=== PATIENT | male | born 1980 | race Native Hawaiian/Other Pacific Islander ===

== ENCOUNTER → 2017-01-10 | Outpatient (CLI) | payer OTHER | END | disposition home or self-care (01) | LOC: LABWHC1 09:28 | PROVIDERS: ATTEND Psychiatry & Neurology Neurology | DX: G40.209 Localization-related (focal) (partial) symptomatic epilepsy and epileptic syndromes with complex partial seizures, not intractable, without status epilepticus (principal) | CPT/HCPCS: 36415; 80177 ==

== ENCOUNTER → 2018-08-24 | Outpatient (CLI) | payer OTHER ==
--- NOTE | 2018-08-25 01:01 | MR ---
EXAMINATION TYPE: MR brain wo/w con DATE OF EXAM: 08/24/2018 COMPARISON: 04/15/2013 HISTORY: epilepsy,Neurocysticercosis TECHNIQUE: Multiplanar, multisequence images of the brain and brainstem is performed without and with IV contras t, utilizing 10 mL intravenous Gadavist . FINDINGS: Ventricles and sulci appear normal. There is no mass effect nor midline shift. There is no sign of intracranial hemorrhage. Brainstem appears normal. Sella turcica is normal. Corpus callosum i s normal. There is normal flow-void in the anterior middle and posterior cerebral arteries. There is normal contrast enhancement of the venous sinuses. I see no pathologic enhancement. There is a 7 mm i rregular filling defect in the right side transverse sinus. This is also present on previous MRI scan and is of doubtful significance. There is 6 mm rounded discrete focus of increased signal on the FLA IR images left posterior temporal lobe white matter. There are multiple scattered white matter high s ignal foci at the berrios-white matter junction of both cerebral hemispheres that measure up to 5 mm. To hemant number is approximately 10. Contrast images show no pathologic enhancement. There is 5 mm focus at berrios-white matter junction left posterior temporal lobe on the FLAIR images. IMPRESSION: Multiple white matter high signal lesions are nonspecific and could relate to neurocystic ercosis as well as demyelinating disease or microvascular ischemia.. Overall appearance of the brain is not significantly different than old exam. I do not see evidence of recurrent disease.
== END | disposition home or self-care (01) ==
LOC: RADMRIMAIN 19:12
PROVIDERS: ATTEND Psychiatry & Neurology Neurology
DX: R90.82 White matter disease, unspecified (principal)
CPT/HCPCS: 70553; A9581

== ENCOUNTER → 2018-12-13 | Outpatient (CLI) | payer OTHER | END | disposition home or self-care (01) | LOC: LABWHC1 10:46 | PROVIDERS: ATTEND Psychiatry & Neurology Neurology | DX: G40.209 Localization-related (focal) (partial) symptomatic epilepsy and epileptic syndromes with complex partial seizures, not intractable, without status epilepticus (principal) | CPT/HCPCS: 36415; 80177 ==

== ENCOUNTER → 2019-12-17 | Outpatient (CLI) | payer OTHER | END | disposition home or self-care (01) | LOC: LABWHC1 09:17 | PROVIDERS: ATTEND Psychiatry & Neurology Neurology | DX: G40.209 Localization-related (focal) (partial) symptomatic epilepsy and epileptic syndromes with complex partial seizures, not intractable, without status epilepticus (principal) | CPT/HCPCS: 36415; 80177 ==

== ENCOUNTER → 2020-06-25 | Outpatient (CLI) | payer OTHER ==
--- NOTE | 2020-06-26 06:35 | CT ---
EXAMINATION TYPE: CT brain wo/w con DATE OF EXAM: 06/25/2020 COMPARISON: CT brain June 30, 2014. MRI brain April 15, 2013. HISTORY: Epilepsy. Follow up scan. CT DLP: 2360 mGycm. Automated Exposure Control for Dose Reduction was Utilized. TECHNIQUE: CT scan of the head is performed without and with IV Contrast, patient injected with 100 mL of Isovue M300. FINDINGS: Noncontrast images show no acute intracranial hemorrhage or midline shift. Chavis-white mat ter differentiation fairly well maintained. The ventricles and sulci are within normal limits in size . Postcontrast images show no suspicious enhancing intraparenchymal mass. The globes are intact and t he visualized sinuses are clear on current study. IMPRESSION: Fairly unremarkable study. No significant change from prior studies.
== END | disposition home or self-care (01) ==
LOC: RADCTMAIN 18:45
PROVIDERS: ATTEND Psychiatry & Neurology Neurology
DX: G40.209 Localization-related (focal) (partial) symptomatic epilepsy and epileptic syndromes with complex partial seizures, not intractable, without status epilepticus (principal); B69.0 Cysticercosis of central nervous system
CPT/HCPCS: 70470; Q9967

== ENCOUNTER → 2021-05-24 | Outpatient (CLI) | payer OTHER | END | disposition home or self-care (01) | LOC: LABWHC1 09:14 | PROVIDERS: ATTEND Psychiatry & Neurology Neurology | DX: G40.209 Localization-related (focal) (partial) symptomatic epilepsy and epileptic syndromes with complex partial seizures, not intractable, without status epilepticus (principal) | CPT/HCPCS: 36415; 80177 ==

== ENCOUNTER → 2022-06-21 | Outpatient (CLI) | payer OTHER | END | disposition home or self-care (01) | LOC: LABWHC1 08:00 | PROVIDERS: ATTEND Psychiatry & Neurology Neurology | DX: G40.209 Localization-related (focal) (partial) symptomatic epilepsy and epileptic syndromes with complex partial seizures, not intractable, without status epilepticus (principal) | CPT/HCPCS: 36415; 80177 ==

== ENCOUNTER → 2022-11-29 | Outpatient (CLI) | payer OTHER ==
[2022-11-29 11:31] LABS: Basophils # (A) 0.03 X 10*3/uL (0.00-0.10); Basophils % (A) 0.3 %; Eosinophils # (A) 0.01 X 10*3/uL (0.04-0.35); Eosinophils % (A) 0.1 %; HCT 48.1 % (39.6-50.0); HGB 15.7 g/dL (13.0-17.0); Immature Grans, Automated 1.1 %; Lymphocytes # (A) 1.96 X 10*3/uL (0.90-5.00); Lymphocytes % (A) 17.5 %; MCH 28.5 pg (27.0-32.0); MCHC 32.6 g/dL (32.0-37.0); MCV 87.5 fL (80.0-97.0); Monocytes # (A) 0.81 X 10*3/uL (0.20-1.00); Monocytes % (A) 7.2 %; NRBC Per 100 WBC 0 /100 WBCS (0.0-0.0); Neutrophils # (A) 8.29 X 10*3/uL (1.80-7.70); Neutrophils % (A) 73.8 %; Platelet Count 244 X 10*3/uL (140-440); RDW 12.8 % (11.5-14.5); WBC 11.22 X 10*3/uL (4.50-10.00)
[2022-11-29 11:39] LABS: ALT 49 U/L (10-49); AST 18 U/L (14-35); Albumin 4.4 g/dL (3.8-4.9); Albumin/Globulin Ratio 1.83 (1.60-3.17); Alkaline Phosphatase 65 U/L (41-126); BUN/Creat Ratio 25.11 Ratio (12.00-20.00); Blood Urea Nitrogen 22.6 mg/dL (9.0-27.0); Calcium 9.9 mg/dL (8.7-10.3); Carbon Dioxide 30.3 mmol/L (20.0-27.5); Chloride 96 mmol/L (96-109); Chol/HDL Ratio 3.92 Ratio; Globulin 2.4 g/dL (1.6-3.3); Glucose 130 mg/dL (70-110); LDL Cholesterol,Calculated 154.5 mg/dL (0.0-131.0); Non-African American GFR(CKD) 103.5 (60.0-200.0); Potassium 4.5 mmol/L (3.5-5.5); Sodium 134 mmol/L (135-145); Total Protein 6.8 g/dL (6.2-8.2)
== END | disposition home or self-care (01) ==
LOC: LABWHC1 08:46
PROVIDERS: ATTEND Family Medicine
DX: I10 Essential (primary) hypertension (principal); E78.2 Mixed hyperlipidemia
CPT/HCPCS: 36415; 80053; 80061; 85025

== ENCOUNTER → 2022-12-23 | Outpatient (CLI) | payer OTHER ==
--- NOTE | 2022-12-24 11:57 | MR ---
EXAMINATION TYPE: MR knee RT wo con DATE OF EXAM: 12/23/2022 COMPARISON: none HISTORY: M25.561 right knee pain TECHNIQUE: Multiplanar, multisequence imaging of the right knee is performed without IV contrast. FINDINGS: MEDIAL MENISCUS: Complex tear posterior horn medial meniscus. Diminutive meniscal body. Anterior horn is intact. LATERAL MENISCUS: Anterior and posterior horns are intact without tear. CRUCIATE LIGAMENTS: The anterior and posterior cruciate ligaments are intact and unremarkable. COLLATERAL LIGAMENTS: The medial collateral ligament and lateral collateral ligament complex are inta ct and unremarkable. EXTENSOR MECHANISM: Visualized quadriceps and patellar tendons are intact. EFFUSION: No significant suprapatellar joint effusion. POPLITEAL CYST: No popliteal/pierson cyst. TRICOMPARTMENT SPACES: Moderate degenerative narrowing medial tibiofemoral joint space with cartilagi nous thinning. Early changes of chondromalacia patella. BONE MARROW SIGNAL: No focal abnormal marrow signal is appreciated. OTHER: No additional significant abnormality is appreciated. IMPRESSION: 1. Complex posterior horn medial meniscal tear. 2. Moderate narrowing medial tibiofemoral joint space with cartilaginous thinning. Early changes of c hondromalacia patella.
== END | disposition home or self-care (01) ==
LOC: RADMRIMAIN 16:24
PROVIDERS: ATTEND Orthopaedic Surgery
DX: M23.221 Derangement of posterior horn of medial meniscus due to old tear or injury, right knee (principal); M22.41 Chondromalacia patellae, right knee; M25.561 Pain in right knee

== ENCOUNTER 2023-02-05 10:33 | Day surgery (SDC) | payer OTHER ==
[2023-02-04 10:20] VITALS: BMI 36.0
--- NOTE | 2023-02-04 21:38 | HP ---
HISTORY AND PHYSICAL DATE OF SURGERY: 02/05/2023. HISTORY OF PRESENT ILLNESS: Clyde Aranda is a 42-year-old gentleman seen with progressive right knee pain. We discussed options for treatment. He elected to proceed with right knee arthroscopy. Consent regarding the procedure was obtained. PAST MEDICAL HISTORY: Hypertension, hyperlipidemia. PAST SURGICAL HISTORY: Noncontributory. DAILY MEDICATIONS: 1. Lisinopril. 2. Rosuvastatin. 3. Ibuprofen. 4. Aspirin. ALLERGIES: None. SOCIAL HISTORY: Denies current tobacco use. PHYSICAL EVALUATION OF THE RIGHT KNEE: Range of motion 0 to 120 degrees. Tenderness along the medial joint line. Positive medial Lonny's. Mild effusion. Ligaments stable. Hip rotation without pain. Distal neurovascular exam is intact. RADIOGRAPHS: Radiographs of the right knee revealed moderate osteoarthritic changes. Right knee MRI revealed medial meniscal tear. IMPRESSION: 1. Internal derangement of right knee with medial meniscal tear. 2. Hypertension. 3. Hyperlipidemia. PLAN: Right knee arthroscopy with partial medial meniscectomy and debridement. MMODL / IJN: [id number] /
[~2023-02-05 10:33] MED LIST: DEXAMETHASONE SOD PHOSPHATE 4 MG/ML 1 ML VIAL IV ONE; HYDROmorphone 0.5 MG/0.5 ML SYRINGE IVP PRN; LACTATED RINGERS 1,000 ML IV SCH; LIDOCAINE 1% (10MG/ML) FOR IV START INTRADERMA PRN; MIDAZOLAM 2 MG/2 ML VIAL IV PRN; ONDANSETRON 4 MG/2 ML VIAL IVP ONE
[2023-02-05] MEDS ORDERED: LACTATED RINGERS 1,000 ML IV ONE (11:00)
[2023-02-05] MEDS ORDERED: MIDAZOLAM 2 MG/2 ML VIAL ONE (11:40)
[2023-02-05] MEDS ORDERED: PROPOFOL 10 MG/ML 20 ML VIAL IV ONE (11:40)
[2023-02-05] MEDS ORDERED: LIDOCAINE 2% INJ 20 MG/ML (2 ML VIAL) ONE (11:40)
[2023-02-05] MEDS ORDERED: KETOROLAC 15 MG/ML 1 ML VIAL ONE (11:40)
[2023-02-05] MEDS ORDERED: fentaNYL (PF) 50 MCG/ML 2 ML AMP ONE (11:40)
[2023-02-05] MEDS ORDERED: BUPIVACAIN-EPI 0.25%-1:200,000 30 ML VIAL SQ ONE (12:03)
--- NOTE | 2023-02-05 12:24 | P.OP ---
Date of Procedure: 02/05/23 Preoperative Diagnosis: Internal derangement right knee Postoperative Diagnosis: 1. Tear medial and lateral meniscus right knee 2. Grade 2 chondromalacia medial femoral condyle right knee 3. Reactive synovitis medial, lateral and suprapatellar compartments right knee Procedure(s) Performed: 1. Arthroscopic partial medial and lateral meniscectomy right knee 2. Arthroscopic chondroplasty medial femoral condyle right knee 3. Arthroscopic partial synovectomy medial, lateral and suprapatellar compartments right knee Anesthesia: KORINAA, local Surgeon: Prateek Lares Estimated Blood Loss (ml): 6 Pathology: none sent Condition: stable Disposition: PACU Indications for Procedure: 42-year-old gentleman seen with progressive right knee pain. After having treatment options discussed, he elected to proceed with arthroscopy. Operative Findings: See description of procedure Description of Procedure: Patient was taken to the operative suite. Patient underwent a general anesthetic by the department of anesthesia. Patient was given preoperative antibiotics. The right lower extremity was placed in a well-padded arthroscopic leg long. The right leg was prepped and draped in the normal sterile orthopedic fashion. A lateral parapatellar and suprapatellar incision was made. Trochars were inserted. Arthroscopy was initiated. Suprapatellar pouch revealed diffuse thick reactive synovitis. The patellofemoral joint appeared to articulate congruently. There was grade 1/2 chondromalacia of the patella without some osteochondral tears. The scope was guided into the medial gutter. No loose bodies or plica were identified. The scope was then guided into the medial compartment. A medial parapatellar incision was made. Trocar inserted followed by probe. There was a complex tear posterior horn medial meniscus. There were grade 2 chondromalacia changes of the medial femoral condyle with some osteochondral flap tears. There was some thick reactive synovitis anteriorly. I performed a partial medial meniscectomy getting down to stable meniscal tissue. I performed a chondroplasty of the medial femoral condyle getting down to stable osteochondral tissue. I performed a partial synovectomy decompressing the reactive synovitis. The residual meniscus was stable. The residual osteochondral surface was stable. There was good decompression of the synovitis. Scope and probe were then guided into the intercondylar notch. Cruciates were identified, probed and found to be stable. The scope and probe were then guided into lateral compartment. There was a radial tear mid body lateral meniscus. There was no Hoffman chondromalacia present. It was some thick reactive synovitis anteriorly. I performed a partial lateral meniscectomy getting down to stable meniscal tissue. I performed a partial synovectomy. Shaver was now removed. There was good decompression of the synovitis. The residual meniscus was stable. The scope was in guided back into the suprapatellar compartment. I introduced a motorized shaver into the suprapatellar compartment. I debrided some piecemeal fragments of meniscus that I encountered. I performed a partial synovectomy. The shaver was now removed. There appeared be good decompression of the synovitis. I took one more look around the entire knee, no residual debris. Instruments were now removed from the joint. The joint was infiltrated with .25% Marcaine. Steri-Strips were applied to the portal sites. Sterile dressings were applied. The patient was placed into a MARK hose. No tourniquet was utilized. The patient was awakened, transferred to a bed and taken to recovery stable satisfactory condition.
[2023-02-05 12:31] VITALS: TEMP 96.9
[2023-02-05] MEDS ORDERED: HYDROcodone/APAP 5-325MG 1 EACH TAB ONE (13:36)
[2023-02-05] MEDS ORDERED: HYDROcodone/APAP 5-325MG 1 EACH TAB PO ONE (13:39)
[2023-02-05 13:57] VITALS: BP 112/74; PULSE 73; RESP 16
== END 2023-02-05 14:25 | disposition home or self-care (01) ==
LOC: OR 10:33
PROVIDERS: ATTEND Orthopaedic Surgery
DX: S83.231A Complex tear of medial meniscus, current injury, right knee, initial encounter (principal); S83.281A Other tear of lateral meniscus, current injury, right knee, initial encounter; M94.261 Chondromalacia, right knee; M65.861 Other synovitis and tenosynovitis, right lower leg; M17.11 Unilateral primary osteoarthritis, right knee; I10 Essential (primary) hypertension; E78.5 Hyperlipidemia, unspecified; F41.9 Anxiety disorder, unspecified; Z79.1 Long term (current) use of non-steroidal anti-inflammatories (NSAID); Z79.82 Long term (current) use of aspirin; Z79.899 Other long term (current) drug therapy
CPT/HCPCS: 29880; J2250; J1100; J0690; J2405; J3010; J1885; J2704; J1170; J2001

== ENCOUNTER → 2023-12-05 | Outpatient (CLI) | payer OTHER ==
[2023-12-05 13:56] LABS: Basophils # (A) 0.04 X 10*3/uL (0.00-0.10); Basophils % (A) 0.7 %; Eosinophils # (A) 0.17 X 10*3/uL (0.04-0.35); Eosinophils % (A) 2.9 %; HCT 47.2 % (39.6-50.0); HGB 15.8 g/dL (13.0-17.0); Lymphocytes # (A) 1.23 X 10*3/uL (0.90-5.00); Lymphocytes % (A) 21.3 %; MCH 28.2 pg (27.0-32.0); MCHC 33.5 g/dL (32.0-37.0); MCV 84.3 FL (80.0-97.0); Mean Platelet Volume 9.9 FL (9.5-12.2); Monocytes # (A) 0.46 X 10*3/uL (0.20-1.00); NRBC Per 100 WBC 0 X 10*3/uL (0.00-0.01); Neutrophils # (A) 3.85 X 10*3/uL (1.80-7.70); Neutrophils % (A) 66.8 %; Platelet Count 206 X 10*3/uL (140-440); RDW 12.8 % (11.5-14.5); WBC 5.77 X 10*3/uL (4.50-10.00)
[2023-12-05 14:06] LABS: Blood Urea Nitrogen 20.7 mg/dL (9.0-27.0); Chloride 100 mmol/L (96-109); Chol/HDL Ratio 3.68 Ratio; Glucose 85 mg/dL (70-110); LDL Cholesterol,Calculated 100.8 mg/dL (0.0-131.0); Potassium 4.6 mmol/L (3.5-5.5); Sodium 138 mmol/L (135-145)
[2023-12-05 14:07] LABS: ALT 34 U/L (10-49); AST 22 U/L (14-35); Albumin 4.5 g/dL (3.8-4.9); Alkaline Phosphatase 72 U/L (41-126); Calcium 9.5 mg/dL (8.7-10.3); Globulin 2.5 g/dL (1.6-3.3); Total Bilirubin 0.5 mg/dL (0.3-1.2)
== END | disposition home or self-care (01) ==
LOC: LABWHC1 09:06
PROVIDERS: ATTEND Nurse Practitioner Family
DX: I10 Essential (primary) hypertension (principal); E78.2 Mixed hyperlipidemia; R73.01 Impaired fasting glucose
CPT/HCPCS: 36415; 80053; 80061; 83036; 85025

== ENCOUNTER 2024-03-15 09:22 | Day surgery (SDC) | payer OTHER ==
[2024-03-10 16:37] VITALS: BMI 36.0
[~2024-03-15 09:22] MED LIST changes: -DEXAMETHASONE SOD PHOSPHATE 4 MG/ML 1 ML VIAL IV ONE; -HYDROmorphone 0.5 MG/0.5 ML SYRINGE IVP PRN; -LACTATED RINGERS 1,000 ML IV SCH; -MIDAZOLAM 2 MG/2 ML VIAL IV PRN; -ONDANSETRON 4 MG/2 ML VIAL IVP ONE
[2024-03-15] MEDS: LACTATED RINGERS 1,000 ML IV SCH (10:05)
[2024-03-15] MEDS ORDERED: PROPOFOL 10 MG/ML 20 ML VIAL IV ONE (10:08)
--- NOTE | 2024-03-15 10:10 | P.GSHP ---
History of Present Illness H&P Date: 03/15/24 Chief Complaint: Colon cancer screening 43-year-old male here for colonoscopy. He has not had 1 previously. No bowel complaints. No family history of colon cancer. Past Medical History Past Medical History: CVA/TIA, Hyperlipidemia, Hypertension, Osteoarthritis (OA) Additional Past Medical History / Comment(s): neurosclerosis History of Any Multi-Drug Resistant Organisms: None Reported Past Surgical History: Orthopedic Surgery Additional Past Surgical History / Comment(s): right knee surgery Past Anesthesia/Blood Transfusion Reactions: No Reported Reaction Past Psychological History: Anxiety Smoking Status: Never smoker Past Alcohol Use History: Rare Past Drug Use History: None Reported - Past Family History Mother Family Medical History: CVA/TIA Medications and Allergies Home Medications Medication Instructions Recorded Confirmed Type Sertraline [Zoloft] 25 mg PO DAILY 06/28/14 03/15/24 History ALPRAZolam [Xanax] 0.25 mg PO BID 02/04/23 03/15/24 History Ascorbic Acid [Vitamin C] 1 dose PO DAILY 02/04/23 03/15/24 History Aspirin [Adult Low Dose Aspirin EC] 81 mg PO DAILY 02/04/23 03/15/24 History Gladstone-3/Dha/Epa/Fish Oil [Fish Oil 1 each PO DAILY 02/04/23 03/15/24 History 1,000 mg Softgel] Rosuvastatin [Crestor] 10 mg PO HS 02/04/23 03/15/24 History levETIRAcetam [Keppra] 750 mg PO BID 02/04/23 03/15/24 History lisinopriL [Zestril] 10 mg PO DAILY 02/04/23 03/15/24 History traZODone HCL [Desyrel] 50 mg PO HS 03/10/24 03/15/24 History Allergies Allergy/AdvReac Type Severity Reaction Status Date / Time No Known Allergies Allergy Verified 03/15/24 09:47 Surgical - Exam Vital Signs Temp Pulse Resp BP Pulse Ox 97.6 F 61 16 131/74 96 03/15/24 09:54 03/15/24 09:54 03/15/24 09:54 03/15/24 09:54 03/15/24 09:54 Physical exam: General: Well-developed, well-nourished HEENT: Normocephalic, sclerae nonicteric Abdomen: Nontender, nondistended Extremities: No edema Neuro: Alert and oriented Assessment and Plan (1) Colon cancer screening Narrative/Plan: Will proceed with colonoscopy at this time. Current Visit: Yes Status: Acute Code(s): Z12.11 - ENCOUNTER FOR SCREENING FOR MALIGNANT NEOPLASM OF COLON SNOMED Code(s): 761832427
--- NOTE | 2024-03-15 10:22 | P.PCN ---
Date of Procedure: 03/15/24 Procedure(s) Performed: PREOPERATIVE DIAGNOSIS: Colon cancer screening POSTOPERATIVE DIAGNOSIS: Diverticulosis PROCEDURE: Colonoscopy ANESTHESIA: MAC SURGEON: Lavon Muir M.D. SPECIMENS: None ENDOSCOPIC PROCEDURE: The patient was placed on the endoscopy table in the left decubitus position. The Olympus colonoscope was inserted into the anus and passed under direct visualization to the base of the cecum. The appendiceal orifice was visualized. From that point the scope was slowly withdrawn inspe cting all surfaces carefully. There were no neoplastic inflammatory or polypoid lesions throughout the cecum, ascending, transverse, descending, sigmoid and rectum. There was mild diverticulosis noted throughout the colon. Digital rectal examination was normal. The patient was taken to the recovery room in stable condition per anesthesia guidelines. RECOMMENDATIONS: Resume diet. Repeat colonoscopy 10 years.
[2024-03-15 10:28] VITALS: RESP 16; TEMP 97.6
[2024-03-15 11:14] VITALS: BP 103/70; PULSE 67
== END 2024-03-15 10:58 | disposition home or self-care (01) ==
LOC: ORWHC2ENDO 09:22
PROVIDERS: ATTEND Surgery
DX: Z12.11 Encounter for screening for malignant neoplasm of colon (principal); K57.30 Diverticulosis of large intestine without perforation or abscess without bleeding; E78.5 Hyperlipidemia, unspecified; I10 Essential (primary) hypertension; M19.90 Unspecified osteoarthritis, unspecified site; F32.A Depression, unspecified; F10.90 Alcohol use, unspecified, uncomplicated; G62.9 Polyneuropathy, unspecified; F41.9 Anxiety disorder, unspecified; Z79.899 Other long term (current) drug therapy; Z86.73 Personal history of transient ischemic attack (TIA), and cerebral infarction without residual deficits; Z79.82 Long term (current) use of aspirin
CPT/HCPCS: 45378; J2704

== ENCOUNTER → 2024-06-18 | Outpatient (CLI) | payer OTHER | END | disposition home or self-care (01) | LOC: LABWHC1 07:50 | PROVIDERS: ATTEND Psychiatry & Neurology Neurology | DX: G40.209 Localization-related (focal) (partial) symptomatic epilepsy and epileptic syndromes with complex partial seizures, not intractable, without status epilepticus (principal) | CPT/HCPCS: 36415; 80177 ==